=== PATIENT | male | born 1975 | race Caucasian/White ===

== ENCOUNTER 2019-08-30 17:52 | Emergency (ER) | payer MEDICAID ==
[~2019-08-30] VITALS: Ht 180.3 cm; Wt 90.7 kg
[2019-08-30 17:56] VITALS: BP 128/93
[2019-08-30 20:05] VITALS: BP 153/62
== END 2019-08-30 20:05 | disposition home or self-care (01) ==
LOC: MED 17:52
DX: L03.311 Cellulitis of abdominal wall (principal); M54.9 Dorsalgia, unspecified; E11.9 Type 2 diabetes mellitus without complications; I10 Essential (primary) hypertension
CPT/HCPCS: 99283